=== PATIENT | male | born 1990 ===

== ENCOUNTER 2018-02-21 16:00 | Emergency (ER) | payer OTHER ==
[~2018-02-21] VITALS: Ht 167.6 cm; Wt 68.0 kg
== END 2018-02-21 17:10 | disposition home or self-care (01) ==
LOC: ER 16:00
DX: S81.012A Laceration without foreign body, left knee, initial encounter (principal); W01.0XXA Fall on same level from slipping, tripping and stumbling without subsequent striking against object, initial encounter; Y99.0 Civilian activity done for income or pay
CPT/HCPCS: 12002; 99282